=== PATIENT | male | born 1945 | race Caucasian/White ===

== ENCOUNTER 2021-01-08 12:50 | Inpatient (IN) | payer MEDICARE, BC ==
[~2021-01-08] VITALS: Ht 144.8 cm; Wt 48.1 kg
[~2021-01-08 12:50] MED LIST: ASPIRIN 81M81 MG/TA2 PO; ASPIRIN E.C. 8181 MG PO; AZULFIDINE PO; CATAPRES 0.1MG0.1 MG PO; CATAPRES0.2 MG PO; FERROUS SU325 MG/TAB PO; FORTAMET500 MG PO; GLUCOPHAGE1000 MG PO; GLUCOTROL XL10 MG PO; LIPITOR 10MG10 MG PO; LISINOPRIL10 MG PO; MIRTAZAPINE7.5 MG PO; NORVASC 5MG5 MG/TAB PO; ONGLYZA5 MG PO; OXAPROZIN600 MG PO; PREDNISONE 5MG5 MG PO; PRINIVIL20 MG PO; TOPROL XL 25MG25 MG PO; TYLENOL 500MG500 MG PO; VITAMIN C500 MG PO; VOLTAREN 75 DR75 MG PO; ZEDIA; ZETIA 10MG TAB10 MG PO; [UNRECOGNIZED DRUG - OTHER]
[2021-01-08] MEDS ORDERED: TYLENOL 500MG500 MG PO (13:36)
[2021-01-08] MEDS ORDERED: HYGROTON 2525 MG/TAB (13:47)
[2021-01-08] MEDS ORDERED: METOPROLOL TART75 MG PO (13:47)
[2021-01-08] MEDS ORDERED: ROXICODONE 55 MG/TAB PO (13:49)
[2021-01-08] MEDS ORDERED: NORVASC 10MG10 MG PO (13:51)
[2021-01-08] MEDS ORDERED: PRINIVIL40 MG PO (13:52)
[2021-01-08] MEDS ORDERED: LIPITOR 40MG TA40 MG PO (13:52)
[2021-01-08] MEDS ORDERED: GLUCOPHAGE500 MG/TAB PO (13:53)
[2021-01-08] MEDS ORDERED: ZETIA 10MG TAB10 MG PO (13:56)
[2021-01-08 16:09] VITALS: BP 133/67; PULSE 106; TEMP 98.7
[2021-01-08 19:33] VITALS: BP 133/67; PULSE 106; TEMP 98.7
[2021-01-09 05:37] VITALS: BP 136/72; PULSE 105; TEMP 98.7
[2021-01-09 15:22] VITALS: BP 115/58; PULSE 95; TEMP 98.2
[2021-01-10 05:34] VITALS: BP 102/53; PULSE 87; TEMP 98.6
[2021-01-10 16:24] VITALS: BP 110/63; PULSE 90; TEMP 98.1
[2021-01-11 04:38] VITALS: BP 106/61; PULSE 79; TEMP 98.1
[2021-01-11 07:17] LABS: BASO # 0.1 (0.0-0.2); BASO % 0.5 % (0.0-2.0); EOS # 1.2 (0.0-0.7); EOS % 6.1 % (0-4.0); GRAN # 11.6 (1.4-6.5); GRAN % 61.8 % (42.2-75.2); HEMOGLOBIN 12.1 g/dl (13.5-18.0); LYMPH # 4.3 (1.2-3.4); LYMPH % 22.6 % (20.0-51.0); MEAN CELL VOLUME 96 fl (80.0-100.0); MEAN CORPUSCULAR HEMOGLOBIN 31 pg (27.0-31.0); MEAN CORPUSCULAR HGB CONC 33 g/dl (33.0-37.0); MEAN PLATELET VOLUME 9.5 fl (7.4-10.4); MONO # 1.5 (0.1-0.6); MONO % 7.8 % (1.7-9.3); PLATELET COUNT 642 K/mm3 (130-400); RED BLOOD COUNT 3.85 M/mm3 (4.20-5.60); REDCELL DISTRIBUTION WIDTH-CV 13.4 % (11.5-14.5)
[2021-01-11 07:22] LABS: HEMATOCRIT 36.8 % (42.0-52.0)
[2021-01-11 07:33] LABS: CREATININE, serum 1.01 (0.66-1.25); MAGNESIUM 1.8 mg/dL (1.6-2.3); POTASSIUM 4.3 mmol/L (3.4-5.0)
[2021-01-11 16:12] VITALS: BP 105/61; PULSE 96; TEMP 98.3
[2021-01-11 22:00] LABS: COLLECTION METHOD CLEAN CATCH
[2021-01-11 22:04] VITALS: BP 126/62
[2021-01-11 22:07] LABS: MUCOUS Present /lpf; PH 5 (5-8); SQUAMOUS EPITHELIAL None Seen /hpf; URINE APPEARANCE Clear; URINE BACTERIA None Seen /hpf; URINE BILIRUBIN Negative (NEGATIVE); URINE BLOOD Negative (NEGATIVE); URINE COLOR Yellow; URINE GLUCOSE Negative (NEGATIVE); URINE KETONE Negative (NEGATIVE); URINE LEUKOCYTE ESTERASE Negative (NEGATIVE); URINE NITRATE Negative (NEGATIVE); URINE PROTEIN(semi-quant) Negative (NEGATIVE); URINE RBC 0-2 /hpf; URINE UROBILINOGEN Negative (NEGATIVE)
[2021-01-12 05:06] VITALS: BP 110/66; PULSE 86; TEMP 98.1
[2021-01-12 17:58] VITALS: BP 100/59; PULSE 86; TEMP 97.9
[2021-01-12 21:51] VITALS: BP 111/63
[2021-01-13 04:34] VITALS: BP 125/68; PULSE 80; TEMP 97.9
[2021-01-13 06:51] LABS: BASO # 0.1 (0.0-0.2); BASO % 0.9 % (0.0-2.0); EOS # 0.9 (0.0-0.7); GRAN # 8.6 (1.4-6.5); GRAN % 58.2 % (42.2-75.2); HEMOGLOBIN 11.6 g/dl (13.5-18.0); MEAN CELL VOLUME 95 fl (80.0-100.0); MEAN CORPUSCULAR HEMOGLOBIN 31 pg (27.0-31.0); MEAN CORPUSCULAR HGB CONC 33 g/dl (33.0-37.0); MONO # 1.1 (0.1-0.6); MONO % 7.4 % (1.7-9.3); RED BLOOD COUNT 3.73 M/mm3 (4.20-5.60); REDCELL DISTRIBUTION WIDTH-CV 13.3 % (11.5-14.5)
[2021-01-13 06:55] LABS: CALCIUM 9.6 mg/dL (8.4-10.2); MAGNESIUM 1.7 mg/dL (1.6-2.3); POTASSIUM 4.5 mmol/L (3.4-5.0)
[2021-01-13 06:57] LABS: HEMATOCRIT 35.4 % (42.0-52.0); PLATELET COUNT 525 K/mm3 (130-400)
[2021-01-13] MEDS ORDERED: DOXYCYCLINE 10100 MG PO (12:32)
[2021-01-13] MEDS ORDERED: PROAIR HFA0.09 MG/AC IH (12:33)
[2021-01-13 18:16] VITALS: BP 99/56; PULSE 86; TEMP 97
[2021-01-14 06:03] VITALS: BP 116/63; PULSE 84; TEMP 98.3
[2021-01-14] MEDS ORDERED: ZESTRIL 20MG TA20 MG PO (08:58)
== END 2021-01-14 13:50 | disposition home or self-care (01) | DRG 947 ==
PROVIDERS: ADMIT Internal Medicine
DX: R53.81 Other malaise (principal); J18.9 Pneumonia, unspecified organism; I47.1 Supraventricular tachycardia; I25.10 Atherosclerotic heart disease of native coronary artery without angina pectoris; F32.9 Major depressive disorder, single episode, unspecified; E11.9 Type 2 diabetes mellitus without complications; D72.829 Elevated white blood cell count, unspecified; Z79.82 Long term (current) use of aspirin; Z79.84 Long term (current) use of oral hypoglycemic drugs; Z79.891 Long term (current) use of opiate analgesic; Z95.1 Presence of aortocoronary bypass graft; Z87.891 Personal history of nicotine dependence
CPT/HCPCS: 99222-AI; 99233-AI; 99239; J0696; J1644; J1815

== ENCOUNTER 2021-01-27 11:00 | Outpatient (RCR) | payer MEDICARE, BC ==
[~2021-01-27 11:00] MED LIST changes: +DOXYCYCLINE 10100 MG PO; +GLUCOPHAGE500 MG/TAB PO; +HYGROTON 2525 MG/TAB; +LIPITOR 40MG TA40 MG PO; +METOPROLOL TART75 MG PO; +NORVASC 10MG10 MG PO; +PRINIVIL40 MG PO; +PROAIR HFA0.09 MG/AC IH; +ROXICODONE 55 MG/TAB PO; +ZESTRIL 20MG TA20 MG PO
== END 2021-04-16 | disposition home or self-care (01) ==
LOC: MKS.ESL.PT
DX: I25.10 Atherosclerotic heart disease of native coronary artery without angina pectoris (principal); Z95.1 Presence of aortocoronary bypass graft

== ENCOUNTER 2021-04-28 15:39 | Outpatient (RCR) | payer MEDICARE, BC | END 2021-04-30 | disposition home or self-care (01) | LOC: COL.CR | DX: Z48.812 Encounter for surgical aftercare following surgery on the circulatory system (principal); Z95.5 Presence of coronary angioplasty implant and graft ==

== ENCOUNTER → 2022-04-09 | Outpatient (CLI) | payer MEDICARE, BC | LOC: COL.RAD 09:35 | DX: M25.571 Pain in right ankle and joints of right foot (principal) | CPT/HCPCS: J3301; Q9967 ==

== ENCOUNTER 2023-10-02 18:08 | Emergency (ER) | payer MEDICARE, BC ==
[~2023-10-02] VITALS: Ht 149.9 cm; Wt 53.6 kg
[2023-10-02 18:18] VITALS: TEMP 98.4
[2023-10-02] MEDS ORDERED: niCARdipine 200 ML IV ONE (20:15)
[2023-10-02] MEDS ORDERED: levETIRAcetam 100 ML IV ONE (20:45)
[2023-10-03 01:17] VITALS: BP 113/78; PULSE 76
== END 2023-10-03 01:19 | disposition short-term general hospital (02) ==
LOC: COL.ER 18:08
DX: S06.5X0A Traumatic subdural hemorrhage without loss of consciousness, initial encounter (principal); E11.9 Type 2 diabetes mellitus without complications; Z87.891 Personal history of nicotine dependence; Z79.84 Long term (current) use of oral hypoglycemic drugs; W11.XXXA Fall on and from ladder, initial encounter; W22.8XXA Striking against or struck by other objects, initial encounter
CPT/HCPCS: J1953; J2404

== ENCOUNTER 2023-10-15 15:19 | Emergency (ER) | payer MEDICARE, BC ==
[~2023-10-15] VITALS: Ht 175.3 cm; Wt 51.4 kg
[2023-10-15 15:25] VITALS: TEMP 98
[2023-10-15 15:51] LABS: BASO # 0.1 K/mm3 (0.0-0.2); BASO % 0.7 % (0.0-2.0); EOS # 0.2 K/mm3 (0.0-0.7); EOS % 1.6 % (0.0-4.0); GRAN # 7.7 K/mm3 (1.4-6.5); GRAN % 64.6 % (42.2-75.2); HEMATOCRIT 39.5 % (42.0-52.0); HEMOGLOBIN 13.4 g/dl (13.5-18.0); LYMPH # 2.9 K/mm3 (1.2-3.4); LYMPH % 24.1 % (20.0-51.0); MEAN CELL VOLUME 93 fl (80.0-100.0); MEAN CORPUSCULAR HEMOGLOBIN 32 pg (27-31); MEAN CORPUSCULAR HGB CONC 34 g/dl (33.0-37.0); MEAN PLATELET VOLUME 8.6 fl (7.4-10.4); MONO % 8.7 % (1.7-9.3); PLATELET COUNT 475 K/mm3 (130-400); RED BLOOD COUNT 4.24 M/mm3 (4.20-5.60); REDCELL DISTRIBUTION WIDTH-CV 11.8 % (11.5-14.5)
[2023-10-15 16:08] LABS: ALBUMIN 4.1 gm/dL (3.4-4.8); BILIRUBIN,TOTAL 0.7 mg/dL (0.2-1.2); CALCIUM 10.1 mg/dL (8.4-10.2); CREATININE, serum 1.45 mg/dL (0.72-1.25); TOTAL PROTEIN 7.5 gm/dL (6.2-8.1)
[2023-10-15 16:19] LABS: INR 1.1 (0.8-3.0); PROTHROMBIN TIME 12.3 SECONDS (9.7-12.8)
[2023-10-15] MEDS ORDERED: levETIRAcetam 500 MG TAB PO ONE (17:45)
[2023-10-15] MEDS ORDERED: KEPPRA750 MG PO (18:12)
[2023-10-15 19:56] VITALS: BP 115/67; PULSE 71
== END 2023-10-15 18:30 | disposition home or self-care (01) ==
LOC: COL.ER 15:19
PROVIDERS: Family Medicine
DX: S06.2XAD Diffuse traumatic brain injury with loss of consciousness status unknown, subsequent encounter (principal); R56.9 Unspecified convulsions; W19.XXXD Unspecified fall, subsequent encounter